=== PATIENT | female | born 1925 | race Caucasian/White ===

== ENCOUNTER 2016-09-18 18:46 | Emergency (ER) | payer MEDICARE, BC ==
[2016-09-18 19:08] VITALS: BP 169/52
--- NOTE | 2016-09-18 19:34 | EDM.PDOC ---
ED HPI DIZZINESS - General Chief Complaint: Neurological Problem Stated Complaint: DIZZYNESS Time Seen by Provider: 09/18/16 19:06 Source of Information: Reports: Patient, Family (Kathe), RN notes reviewed Exam Limitations: Reports: Other (The patient is a somewhat poor historian, unable to verbally elucidate her symptoms.) - History of Present Illness INITIAL COMMENTS - FREE TEXT/NARRATIVE: The patient states that she simultaneously developed, around 10:00 this morning , decreased hearing in her right ear, which persists, and dizziness, which she is unable to clearly elucidate lightheadedness versus vertigo, which has likely resolved. According to the patient's niece, she suspects that the dizziness has been coming and going today. The patient reports worse dizziness if she is upright, and she had some nausea without emesis. The patient denies that the room was spinning, but the patient's nurse states that she found the patient holding onto the cruz in order to prevent herself from falling. The patient denies having chest pain, palpitations, dyspnea, tingling, numbness, or weakness. The patient's niece states that the patient has a history of vertigo, however, the patient does not recall that, and is therefore unable to say whether her dizziness symptoms today are similar to the vertigo symptoms that she has had in the past. Similarly, when I asked if the patient had experienced any ringing in her ears, she said that she thought she did early on, but not now. The patient did not volunteer a history of tinnitus. No recent illnesses. - Related Data Allergies/ADRs: Allergies Allergy/AdvReac Type Severity Reaction Status Date / Time No Known Allergies Allergy Verified 06/22/14 20:38 Home Meds: Home Meds Meclizine [Antivert] 25 mg PO TID PRN #20 tab 06/22/14 [Rx] Aspirin [Ecotrin] 81 mg PO DAILY 09/18/16 [History] Ezetimibe [Zetia] 10 mg PO DAILY 09/18/16 [History] Fenofibrate 145 mg PO DAILY 09/18/16 [History] Glimepiride [Amaryl] 4 mg PO DAILY 09/18/16 [History] Losartan/Hydrochlorothiazide [Losartan-HCTZ 100-25 MG] 1 tab PO DAILY 09/18/16 [ History] Lutein/Minerals/Vit A,C & E [Ocuvite] 1 tab PO DAILY 09/18/16 [History] amLODIPine [Norvasc] 5 mg PO DAILY 09/18/16 [History] Past Medical History HEENT History: Reports: Hard of hearing, Impaired vision Cardiovascular History: Reports: High cholesterol, Hypertension Genitourinary History: Reports: Renal calculus (Possible - patient isn't sure) Musculoskeletal History: Reports: Arthritis Endocrine/Metabolic History: Reports: Diabetes, type II - Past Surgical History HEENT Surgical History: Reports: Tonsillectomy Social & Family History - Tobacco Use Smoking Status *Q: Never Smoker Second Hand Smoke Exposure: No - Alcohol Use Alcohol Use History: Yes Alcohol Use Frequency: Rarely - Recreational Drug Use Recreational Drug Use: No - Living Situation & Occupation Living situation: Reports: , alone Occupation: retired ED ROS GENERAL - Review of Systems Review Of Systems: See Below Constitutional: Reports: no symptoms HEENT: Reports: No symptoms Respiratory: Reports: No Symptoms Cardiovascular: Reports: No symptoms Endocrine: Reports: no symptoms GI/Abdominal: Reports: No symptoms : Reports: no symptoms Musculoskeletal: Reports: no symptoms Skin: Reports: no symptoms Neurological: Reports: No Symptoms Psychiatric: Reports: No symptoms Hematologic/Lymphatic: Reports: no symptoms Immunologic: Reports: no symptoms ED EXAM, DIZZINESS - Physical Exam Exam: See Below Exam Limited By: No limitations General Appearance: alert, WD/WN, no apparent distress Eye Exam: bilateral eye: EOMI, normal inspection Ears: normal external exam, normal canal, normal TMs, hearing loss Nose: normal inspection, normal mucosa, no blood Throat/Mouth: Normal inspection, Normal lips, Normal teeth, Normal gums, Normal oropharynx, Normal voice, No airway compromise Head Exam: atraumatic, normocephalic Neck: normal inspection, full range of motion Respiratory/Chest: no respiratory distress, lungs clear, normal breath sounds, no accessory muscle use Cardiovascular: normal peripheral pulses, regular rate, rhythm, no gallop, no JVD, no rub, systolic murmur (2-3/6, heard best at the apex, consistent with MR) GI/Abdominal: normal bowel sounds, soft, non tender, no organomegaly, no distention, no abnormal bruit, no mass (Female) Exam: Deferred Rectal (Female) Exam: Deferred Neurological: alert, normal dorsiflexion, CN II-XII intact, normal plantar flexion, no motor/sensory deficits, oriented x 3 Extremities: normal inspection, normal range of motion, no pedal edema, normal capillary refill Psychiatric: normal affect Skin Exam: Warm, Dry, Intact, Normal color, No rash EKG INTERPRETATION EKG Date: 09/18/16 Time: 19:38 Rhythm: NSR Rate (beats/min): 70 [place]: normal P-wave: present QRS: normal ST-T: normal QT: normal Comparison: no change (06/22/2014) Course - Vital Signs Last Recorded V/S: Last Vital Signs Temp 36.0 C 09/18/16 19:07 Pulse 70 09/18/16 19:07 Resp 14 09/18/16 19:07 BP 169/52 H 09/18/16 19:07 Pulse Ox 96 09/18/16 19:07 Orthostatic Blood Pressure [ 154/58 Standing] Orthostatic Blood Pressure [ 157/53 Supine] - Orders/Labs/Meds Orders: Active Orders 24 hr Category Date Time Status EKG Documentation Completion [RC] STAT Care 09/18/16 19:27 Active Orthostatic Vital Signs [RC] STAT Care 09/18/16 19:26 Active Head wo Cont [CT] Stat Exams 09/18/16 19:26 Taken Labs: Laboratory Tests 09/18/16 09/18/16 09/18/16 Range/Units 19:47 19:47 21:24 WBC 7.03 (3.98-10.04) K/mm3 RBC 3.90 L (3.98-5.22) M/mm3 Hgb 11.6 (11.2-15.7) gm/L Hct 36.3 (34.1-44.9) % MCV 93.1 (79.4-94.8) fl MCH 29.7 (25.6-32.2) pg MCHC 32.0 L (32.2-35.5) g/dl RDW Std Deviation 42.8 (36.4-46.3) fL Plt Count 226 (182-369) K/mm3 MPV 10.7 (9.4-12.3) fl Neutrophils % (Manual) 69 H (40-60) % Band Neutrophils % 0 (0-10) % Lymphocytes % (Manual) 26 (20-40) % Atypical Lymphs % 0 % Monocytes % (Manual) 1 L (2-10) % Eosinophils % (Manual) 4 (0.7-5.8) % Basophils % (Manual) 0 L (0.1-1.2) Platelet Estimate Adequate RBC Morph Comment Normal Sodium 139 (136-145) mEq/L Potassium 3.2 L (3.5-5.1) mEq/L Chloride 102 (98-107) mEq/L Carbon Dioxide 24 (21-32) mEq/L Anion Gap 16.2 H (5-15) BUN 27 H (7-18) mg/dL Creatinine 1.4 H (0.55-1.02) mg/dL Est Cr Clr Drug Dosing 19.95 mL/min Estimated GFR (MDRD) 35 (>60) mL/min BUN/Creatinine Ratio 19.3 H (14-18) Glucose 55 L (83-115) mg/dL Calcium 9.4 (8.5-10.1) mg/dL Magnesium 2.1 (1.8-2.4) mg/dl Total Bilirubin 0.4 (0.2-1.0) mg/dL AST 26 (15-37) U/L ALT 18 (14-59) U/L Alkaline Phosphatase 36 L (46-116) U/L Troponin I < 0.017 (0.00-0.056) ng/mL Total Protein 7.3 (6.4-8.2) g/dl Albumin 3.8 (3.4-5.0) g/dl Globulin 3.5 gm/dL Albumin/Globulin Ratio 1.1 (1-2) Urine Color Light yellow (Yellow) Urine Appearance Clear (Clear) Urine pH 6.0 (5.0-8.0) Ur Specific [place] 1.015 (1.005-1.030) Urine Protein Negative (Negative) Urine Glucose (UA) Negative (Negative) Urine Ketones Negative (Negative) Urine Occult Blood Trace-lysed H (Negative) Urine Nitrite Negative (Negative) Urine Bilirubin Negative (Negative) Urine Urobilinogen 0.2 (0.2-1.0) Ur Leukocyte Esterase Negative (Negative) Urine RBC 0-5 (0-5) /hpf Urine WBC 0-5 (0-5) /hpf Ur Epithelial Cells Not Reportable Ur Squamous Epith Cells 0-5 (0-5) /hpf Urine Bacteria Not seen (FEW) /hpf Urine Mucus Not seen (FEW) /hpf - Radiology Interpretation Free Text/Narrative:: CT of the head without contrast is read by [facility] as "No acute findings on this noncontrast study. If clinical concern persists consider MRI" - Re-Assessments/Exams Free Text/Narrative Re-Assessment/Exam: 09/18/16 19:29 It is unclear if the patient's dizziness was lightheadedness or vertiginous. Her neurologic exam is entirely unremarkable, nevertheless, I have ordered a CT scan of the brain, which I do not expect to show any abnormalities other than senescent changes. I have ordered orthostatics, as well as some blood work, an ECG, and a urinalysis. Ultimately, however, I suspect that the patient's symptoms are due to some middle ear etiology, therefore, if the patient's workup is otherwise unremarkable, I will refer her to ENT. 09/18/16 19:50 The patient is not orthostatic. 09/18/16 21:45 The patient's blood glucose was found to be 55 on her chemistry panel. She was given something to eat, and is currently reporting feeling fine, although she states that she still has decreased hearing in her right ear. The patient takes glimepiride. Her BUN/Cr is noted to be 27/1.4 today. It was 19/0.9 on 06/22/2014. It is very possible that her hypoglycemia is related to excess glimepiride in the face of worsening renal function. It is uncertain what the overall cause of her symptoms is - an ENT issue, or hypoglycemia. I am recommending to the patient that she check her blood sugar each morning, prior to taking her glimepiride and if not elevated, that she not take her glimepiride that day. Further, I would like her to followup with her PCP, Dr. Gorman, this coming 09/21/2016. I will give her a referral to ENT, should her symptoms persist. Departure - Departure Time of Disposition: 21:48 Disposition: Home, Self-Care 01 Condition: good Clinical Impression: Dizziness, Hypoglycemia, Decreased hearing of right ear Referrals: Jose Gorman MD [Primary Care Provider] - Toni Schaffer MD [Physician] - Forms: ED Department Discharge Additional Instructions: You were seen in the emergency room for decreased hearing in her right ear, and dizziness. Workup in the ER included blood work, a urinalysis, an ECG, a CT scan of your head, and positional blood pressure checks. Your workup was unremarkable, except that your blood sugar was found to be low at 55, and your kidney function is declining. Your BUN/Cr was 27/1.4 today, and it was 19/0.9 on 06/22/2014. Since you take glimepiride, your low blood sugar may be caused by excessive glimepiride in the presence of worsening kidney function. You will need to talk to Dr. Gorman about possibly lowering the dose of your glimepiride. For this weekend, check your blood sugar each morning, before taking your glimepiride. If it is high, you can take your glimepiride, however, if it is normal or low, do not take your glimepiride. If you are unable to check your blood sugar, do not take your glimepiride. If your symptoms continue, the cause of your symptoms may be related to a middle ear problem. In that case, please followup with the ENT Dr. Schaffer. If any other problems, please do not hesitate to return to the ER. - My Orders Last 24 Hours: My Active Orders 09/18/16 19:26 Orthostatic Vital Signs [RC] STAT Head wo Cont [CT] Stat 09/18/16 19:27 EKG Documentation Completion [RC] STAT - Assessment/Plan Last 24 Hours: My Active Orders 09/18/16 19:26 Orthostatic Vital Signs [RC] STAT Head wo Cont [CT] Stat 09/18/16 19:27 EKG Documentation Completion [RC] STAT
--- NOTE | 2016-09-20 16:19 | CT ---
Head CT Technique: Multiple axial sections through the brain were obtained. Intravenous contrast was not utilized. Comparison: Previous head CT exam of 07/02/14. Findings: Ventricles along with basal cisterns and sulci over the convexities are within normal limits for the patient's age. Minimal diminished density noted within the periventricular white matter compatible with small vessel ischemic demyelination change. 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 No evidence of intracranial hemorrhage. No midline shift or mass effect is seen. Atherosclerotic change noted within the carotid siphon and within the left vertebral artery. Bone window settings were reviewed which show no acute calvarial abnormality. Mild mucosal thickening seen within the right mastoid sinus. Mastoid findings is an interval change from prior exam. Impression: 1. Mucosal thickening within the right mastoid sinus which is an interval change from prior exam. This may be incidental but please exclude any symptoms of mastoiditis. 2. Mild senescent change as noted above. No acute intracranial abnormality is seen. Diagnostic code #3 Mostly agree with preliminary report issued by [facility] - additional note of mucosal thickening within the right mastoid sinus (preliminary [facility] report dictated on 09/18/16, 9:15 PM Central Time)
== END 2016-09-18 22:12 | disposition home or self-care (01) ==
LOC: JD.ED 18:46
DX: R42 Dizziness and giddiness (principal); E16.2 Hypoglycemia, unspecified; H91.91 Unspecified hearing loss, right ear; E78.00 Pure hypercholesterolemia, unspecified; I10 Essential (primary) hypertension; E11.9 Type 2 diabetes mellitus without complications; Z98.890 Other specified postprocedural states; Z79.82 Long term (current) use of aspirin; Z79.899 Other long term (current) drug therapy
CPT/HCPCS: 36415; 70450; 70450-26; 80053; 81001; 83735; 84484; 85025; 93005; 99284; 99284-25; 99285-25

== ENCOUNTER 2017-05-11 07:36 | Day surgery (SDC) | payer MEDICARE, BC ==
[2017-05-11] MEDS: Polymyxin B/Trimethoprim 10 ML Bottle EYELF SCH ×5 (07:58→11:19)
[2017-05-11] MEDS: Brimonidine 0.2% Ophth Soln 5 ML Bottle EYELF SCH ×4 (08:04→11:19)
[2017-05-11] MEDS: Phenylephrine 2.5% Ophth Soln 2 ML Bot EYELF SCH ×6 (08:09→11:05)
--- NOTE | 2017-05-11 08:39 | PCM.PREANE ---
Preanesthetic Assessment - Anesthesia/Transfusion/Family Hx Anesthesia History: Prior Anesthesia Without Reaction Family History of Anesthesia Reaction: No Transfusion History: No Prior Transfusion(s) Intubation History: Unknown - Review of Systems General: No Symptoms Pulmonary: No Symptoms Cardiovascular: No Symptoms (HTN) Gastrointestinal: No Symptoms Neurological: No Symptoms Other: Reports: None, Diabetes (am blood sugar at 0755= 73), Sinus Problem ( post nasal drip noted) - Physical Assessment NPO Status Date: 05/10/17 NPO Status Time: 22:30 Pulse: 70 O2 Sat by Pulse Oximetry: 98 Respiratory Rate: 16 Blood Pressure: 142/60 Temperature: 36.9 C Vital Signs: Last Vital Signs Temp 36.9 C 05/11/17 07:45 Pulse 70 05/11/17 07:45 Resp 16 05/11/17 07:45 BP 142/60 H 05/11/17 07:45 Pulse Ox 98 05/11/17 07:45 Height: 1.55 m Weight: 52.163 kg ASA Class: 2 Mental Status: Alert & Oriented x3 Airway Class: Mallampati = 2 Dentition: Reports: Normal Dentition, Missing Tooth/Teeth, Caries Thyro-Mental Finger Breadths: 3 Mouth Opening Finger Breadths: 3 ROM/Head Extension: Full Lungs: Clear to Auscultation, Normal Respiratory Effort Cardiovascular: Regular Rate, Regular Rhythm, No Murmurs - Allergies Allergies/Adverse Reactions: Allergies Allergy/AdvReac Type Severity Reaction Status Date / Time diphenhydramine Allergy Cannot Verified 05/10/17 15:06 [From [facility] (diphenhydramine)] - Anesthesia Plan Pre-Op Medication Ordered: None - Acknowledgements Anesthesia Type Planned: MAC Pt an Appropriate Candidate for the Planned Anesthesia: Yes Alternatives and Risks of Anesthesia Discussed w Pt/Guardian: Yes Pt/Guardian Understands and Agrees with Anesthesia Plan: Yes PreAnesthesia Questionnaire HEENT History: Reports: Hard of Hearing, Impaired Vision Cardiovascular History: Reports: High Cholesterol, Hypertension Genitourinary History: Reports: Renal Calculus Musculoskeletal History: Reports: Arthritis Endocrine/Metabolic History: Reports: Diabetes, Type II Other Endocrine/Metabolic History: oral meds - Past Surgical History HEENT Surgical History: Reports: Tonsillectomy - SUBSTANCE USE Smoking Status *Q: Never Smoker Second Hand Smoke Exposure: No Days Per Week of Alcohol Use: 0 Recreational Drug Use History: No - HOME MEDS Home Medications: Home Meds Meclizine [Antivert] 25 mg PO TID PRN #20 tab 06/22/14 [Rx] Aspirin [Ecotrin] 81 mg PO DAILY 09/18/16 [History] Ezetimibe [Zetia] 10 mg PO DAILY 09/18/16 [History] Fenofibrate 145 mg PO DAILY 09/18/16 [History] Glimepiride [Amaryl] 2 mg PO DAILY 09/18/16 [History] Losartan/Hydrochlorothiazide [Losartan-HCTZ 100-25 MG] 1 tab PO DAILY 09/18/16 [ History] Lutein/Minerals/Vit A,C & E [Ocuvite] 1 tab PO DAILY 09/18/16 [History] amLODIPine [Norvasc] 5 mg PO DAILY 09/18/16 [History] - CURRENT (IN HOUSE) MEDS Current Meds: Current Medications Brimonidine Tartrate (Alphagan 0.2% Ophth Soln) 0 ml EYELF ASDIRECTED AKBAR Stop: 05/11/17 18:00 Last Admin: 05/11/17 08:04 Dose: 1 drop Cefuroxime Sodium (Zinacef) 0 mg EYELF ASDIRECTED AKBAR Stop: 05/11/17 18:00 Lidocaine HCl (Xylocaine-Mpf 1%) 10 ml INJECT ASDIRECTED AKBAR Stop: 05/11/17 18:00 Phenylephrine HCl (Corbin-Synephrine 2.5% Ophth Soln) 0 ml EYELF ASDIRECTED AKBAR Stop: 05/11/17 18:00 Last Admin: 05/11/17 08:30 Dose: 1 drop Pilocarpine HCl (Pilocar 4% Ophth Soln) 0 ml EYELF ASDIRECTED AKBAR Stop: 05/11/17 18:00 Polymyxin/Trimethoprim Sulfate (Polytrim Ophth Soln) 0 ml EYELF ASDIRECTED AKBAR Stop: 05/11/17 18:00 Last Admin: 05/11/17 07:58 Dose: 1 drop Tetracaine HCl (Tetracaine 0.5% Steri-Unit Katarina) 0 ml EYELF ASDIRECTED AKBAR Stop: 05/11/17 18:00 Tropicamide (Mydriacyl 1% Ophth Soln) 0 ml EYELF ASDIRECTED AKBAR Stop: 05/11/17 18:00 Last Admin: 05/11/17 08:25 Dose: 1 drop
[2017-05-11] MEDS: Tetracaine HCl/PF 0.5% 4 ML Bottle EYELF SCH ×3 (09:16→11:08)
[2017-05-11] MEDS: Lidocaine 1% PF 2 ML SDV INJECT SCH ×2 (09:18→11:08)
[2017-05-11] MEDS: Cefuroxime 10 MG/ML SYRINGE EYELF SCH ×2 (09:19→11:18)
[2017-05-11] MEDS: Pilocarpine 4% Ophth Soln 15 ML Bot EYELF SCH ×2 (09:20→11:19)
[2017-05-11] MEDS: Brimonidine 0.2% Ophth Soln 5 ML Bottle EYERT SCH ×2 (09:43→10:13)
[2017-05-11] MEDS ORDERED: Cefuroxime 10 MG/ML SYRINGE EYERT SCH (09:45)
[2017-05-11] MEDS ORDERED: Pilocarpine 4% Ophth Soln 15 ML Bot EYERT SCH (09:45)
[2017-05-11] MEDS ORDERED: Tetracaine HCl/PF 0.5% 4 ML Bottle EYERT SCH (09:45)
[2017-05-11] MEDS ORDERED: Polymyxin B/Trimethoprim 10 ML Bottle EYERT SCH (09:45)
[2017-05-11] MEDS ORDERED: Lidocaine 1% PF 2 ML SDV INJECT SCH (09:45)
[2017-05-11] MEDS: Phenylephrine 2.5% Ophth Soln 2 ML Bot EYERT SCH ×4 (09:46→10:20)
--- NOTE | 2017-05-11 11:19 | PCM48HPAN ---
Post Anesthesia Note - EVALUATION WITHIN 48HRS OF ANESTHETIC Vital Signs in Normal Range: Yes Patient Participated in Evaluation: Yes Respiratory Function Stable: Yes Airway Patent: Yes Cardiovascular Function Stable: Yes Hydration Status Stable: Yes Pain Control Satisfactory: Yes Nausea and Vomiting Control Satisfactory: Yes Mental Status Recovered: Yes
[2017-05-11 11:55] VITALS: BP 106/62
== END 2017-05-11 11:37 | disposition home or self-care (01) ==
LOC: JD.SDS 07:36
PROVIDERS: ATTEND Ophthalmology
DX: E11.36 Type 2 diabetes mellitus with diabetic cataract (principal); H16.103 Unspecified superficial keratitis, bilateral; H11.153 Pinguecula, bilateral; H35.3132 Nonexudative age-related macular degeneration, bilateral, intermediate dry stage; H02.833 Dermatochalasis of right eye, unspecified eyelid; H02.836 Dermatochalasis of left eye, unspecified eyelid; I10 Essential (primary) hypertension; R01.1 Cardiac murmur, unspecified; E78.00 Pure hypercholesterolemia, unspecified; M19.90 Unspecified osteoarthritis, unspecified site; Z96.1 Presence of intraocular lens; Z87.442 Personal history of urinary calculi; Z88.8 Allergy status to other drugs, medicaments and biological substances; Z79.82 Long term (current) use of aspirin; Z79.84 Long term (current) use of oral hypoglycemic drugs; Z79.899 Other long term (current) drug therapy; Z90.89 Acquired absence of other organs; Z98.890 Other specified postprocedural states; Z98.42 Cataract extraction status, left eye
CPT/HCPCS: 66984; J0697; 82962; A9270-GY; C1780